=== PATIENT | male | born 1985 | race Caucasian/White ===

== ENCOUNTER 2016-08-21 01:45 | Emergency (ER) | payer MEDICAID ==
[~2016-08-21] VITALS: Ht 188 cm; Wt 86.0 kg
[2016-08-21 01:46] VITALS: BP 126/77
== END 2016-08-21 03:20 | disposition home or self-care (01) ==
LOC: ED 03:18
DX: L03.114 Cellulitis of left upper limb (principal); F15.129 Other stimulant abuse with intoxication, unspecified
CPT/HCPCS: 99283